=== PATIENT | male | born 1955 | race Caucasian/White ===

== ENCOUNTER → 2024-01-28 06:33 | Day surgery (SDC) | payer OTHER, SELFPAY | LOC: GI 06:33 | PROVIDERS: ATTENDING PHYSICIAN Internal Medicine Gastroenterology; FAMILY PHYSICIAN Family Medicine | DX: K20.0 Eosinophilic esophagitis (principal); K22.2 Esophageal obstruction; K22.89 Other specified disease of esophagus; K31.89 Other diseases of stomach and duodenum; R13.10 Dysphagia, unspecified | CPT/HCPCS: 43249; 43239; 88305; 88342 ==

== ENCOUNTER 2024-04-26 12:58 | Emergency (ER) | payer OTHER, SELFPAY ==
[2024-04-26 13:00] VITALS: BP 147/84
[2024-04-26 14:01] VITALS: BP 128/81
--- NOTE | 2024-04-26 14:05 | ED.GENMED ---
History of Present Illness
<Eryn Todd PA-C - Last Filed: 04/26/24 17:52>
General
Chief Complaint: Esophageal Problem
Source: patient
Exam Limitations: none
Time Seen by Provider: 04/26/24 13:59
History of Present Illness
History of Present Illness:
This is a 68-year-old male with a past medical history of eosinophilic esophagitis, gastritis, A-fib on Xarelto presenting emergency department today with concerns of a hot dog being stuck chest. Patient states that he was with his eating
lunch today when he took the last day of his hot dog and noticed that it got stuck in his chest. Patient states he is able to swallow about long-term but felt to get stuck in his chest. Patient is denies any shortness of breath, tongue or lip
swelling. Patient states that his symptoms started right away and he cannot tolerate sips of water without gagging or coughing up saliva. Patient states that this has happened to him in the past with a pill. Patient denies any abdominal pain,
nausea, vomiting, diarrhea, constipation. Patient follows with Dr. Burton for gastroenterology.
Past History
<RENNY Pressley Last Filed: 04/26/24 17:52>
Past History
ED Past Medical History: Arrthythmia (Atrial tachycardia, atrial fibrillation), Asthma and Other (PE after Achilles tendon repair february 2013 , atrial tachycardia, Vertigo)
ED Past Surgical History: Orthopedic (Right Achilles tendon tear repair 02/06/2013), Tonsilectomy and Other (Hernia repair X2)
Social History
Tobacco: Non-smoker
Alcohol: Occasional
Drug: None
Personal:
Living: with family
Employment: Employed
Family History
Family History: Other (He has a brother with atrial tachycardia)
Review of Systems
<RENNY Pressley Last Filed: 04/26/24 17:52>
Review of Systems
All Other Systems: ROS reviewed and negative except as documented in HPI and ROS
Phy Exam
<Eryn Todd PA-C - Last Filed: 04/26/24 17:52>
Physical Exam
Physical Exam:
General: Patient is well appearing and in no acute distress; non-toxic
Skin: Warm and dry, no rashes or lesions
Head: Normocephalic, atraumatic
Eyes: Sclera non-icteric. EOMs intact.
Peripheral Vascular: No lower extremity swelling or edema
Cardiac: Regular rate and rhythm, no murmurs
Pulm: Normal respiratory effort, no wheezes, rales, or rhonchi
Musculoskeletal: No tenderness to palpation of the external chest wall
Neuro: CN II-XII intact, no focal neurologic deficits.
Psychiatric: Appropriate mood and affect.
Course
<Eryn Todd PA-C - Last Filed: 04/26/24 17:52>
Orders/Labs/Results
Orders:
Orders
04/26/24 14:19
0.9% Sodium Chloride 1000 ml [Nss] 1,000 ml IV BOLUS
Glucagon [GlucaGen] 1 mg IV NOW STA
Ondansetron Injectable [Zofran] 4 mg IV NOW STA
04/26/24 15:22
Fentanyl Citrate/Pf [Sublimaze] 100 mcg .ROUTE .STK-MED ONE
Glycopyrrolate [Robinul] 0.2 mg .ROUTE .STK-MED ONE
Lidocaine 2% [Xylocaine 2% Mdv] 20 ml .ROUTE .STK-MED ONE
Ondansetron Injectable [Zofran] 4 mg .ROUTE .STK-MED ONE
Propofol [Diprivan] 20 ml .ROUTE .STK-MED
Rocuronium Davis [Rocuronium] 50 mg .ROUTE .STK-MED ONE
Vital Signs
Initial and Last Documented VS:
Initial Vital Signs
Temp Pulse Resp BP Pulse Ox
97.8 F 89 16 147/84 98
04/26/24 13:00 04/26/24 13:00 04/26/24 13:00 04/26/24 13:00 04/26/24 13:00
Last Documented Vital Signs
Temp Pulse Resp BP Pulse Ox
97.8 F 56 13 121/71 100
04/26/24 13:00 04/26/24 15:15 04/26/24 15:15 04/26/24 15:00 04/26/24 15:15
<Markus De La Garza, DO - Last Filed: 04/26/24 14:40>
Orders/Labs/Results
Orders:
Orders
04/26/24 14:19
0.9% Sodium Chloride 1000 ml [Nss] 1,000 ml IV BOLUS
Glucagon [GlucaGen] 1 mg IV NOW STA
Ondansetron Injectable [Zofran] 4 mg IV NOW STA
04/26/24 15:22
Fentanyl Citrate/Pf [Sublimaze] 100 mcg .ROUTE .STK-MED ONE
Glycopyrrolate [Robinul] 0.2 mg .ROUTE .STK-MED ONE
Lidocaine 2% [Xylocaine 2% Mdv] 20 ml .ROUTE .STK-MED ONE
Ondansetron Injectable [Zofran] 4 mg .ROUTE .STK-MED ONE
Propofol [Diprivan] 20 ml .ROUTE .STK-MED
Rocuronium Davis [Rocuronium] 50 mg .ROUTE .STK-MED ONE
Vital Signs
Initial and Last Documented VS:
Initial Vital Signs
Temp Pulse Resp BP Pulse Ox
97.8 F 89 16 147/84 98
04/26/24 13:00 04/26/24 13:00 04/26/24 13:00 04/26/24 13:00 04/26/24 13:00
Last Documented Vital Signs
Temp Pulse Resp BP Pulse Ox
97.8 F 56 13 121/71 100
04/26/24 13:00 04/26/24 15:15 04/26/24 15:15 04/26/24 15:00 04/26/24 15:15
<Eryn Todd PA-C - Last Filed: 04/26/24 17:52>
MDM/Problems Addressed
Differential Diagnosis Includes:
ddx include esophageal food impaction, esophagitis, gastritis, ACS,
MDM/Problems Addressed:
Globus sensation:
This is a 68-year-old male with a past medical history of eosinophilic esophagitis, gastritis, A-fib on Xarelto presenting emergency department today with concerns of a hot dog being stuck chest. Patient states that this has happened to him in the
past with a pill. Patient states that he ate his last bite of his hot dog and noticed it got stuck in his esophagus. I personally observed patient attempt to drink sips of water--he could not tolerate this and would gag and had a cup beside him for
salvia to collect. Patient was given IV fluids, glucagon, and Zofran. Because of his inability to tolerate saliva and water, GI was consulted consulted who agreed to see patient and scope him. As soon as the GI security and privacy consultant left the room, patient
states that his symptoms resolved and that he is able to get the hot dog down. On reevaluation, patient is asymptomatic and able to tolerate drinks of water without any globus sensation, without any gagging, without any reflux. Patient stable for
discharge to follow-up with his porcelain waxer.
Chronic conditions affecting care:
EOE, afib on eliquis, htn,
Acute Exacerbation and/or Progression of Chronic Illness:
EOE
<Eryn Todd PA-C - Last Filed: 04/26/24 17:52>
*Pulse Oximetry
Patient hypoxic: no
*Critical Care Note
Total Time (30-74mins, 75-104mins- exclusive of procedures): Not Applicable
Data Reviewed
Review of Other/Old Records Reveals: Records (reviewed previous ER physician documentation) and Operative Reports (Reviewed endoscopy report)
Source: patient and records
<Eryn Todd PA-C - Last Filed: 04/26/24 17:52>
Patient Management
Discussion with other providers: [facility] Laborer (gastroenterology)
Escalation/DeEscalation of care consider admission/obs:
Admit not indicated. Patient stable for discharge.
ED Attending Note
<Eryn Todd PA-C - Last Filed: 04/26/24 17:52>
-
Portions of this chart may have been created with voice recognition software.� Occasional wrong word or��sound alike� substitutions may have occurred due to the inherent limitations of voice recognition software.
<Markus De La Garza DO - Last Filed: 04/26/24 14:40>
ED Attending Note
Patient seen and examined by attending physician: Yes
I performed the substantive portion of visit, reviewed & personally made and approve the management plan that is documented in note by myself or RK.: Yes
I performed a history and physical exam of patient and discussed management with resident, I reviewed resident's note and agree with documented findings and plan of care.: Yes
ED Attending Note:
I evaluated the patient at bedside. GI has been contacted.
Discharge Plan
Departure
Patient Disposition: Home (Routine Discharge)
Date of Disposition: 04/26/24
Time of Disposition: 15:19
Patient with high blood pressure during this ER visit?: Yes
Condition: Fair
Discharge Problem:
Food impaction of esophagus
Prescriptions:
No Action
metoprolol succinate 50 MG tablet extended release 24 hr
75 mg PO DAILY
Xarelto 20 MG tablet
20 mg PO QPM Qty: 60 0RF
Referrals:
Braulio Griffin MD [Family Provider] -
Activity Restrictions/Additional Instructions:
Please return to the emergency department should you experience another episode of food impaction, chest pain, shortness of breath, dizziness, lightheadedness, weakness, confusion, or any other signs or symptoms concerning to you.
Please follow-up with your porcelain waxer.
Interventions
Interventions:
*Risk Screen - Suicide Last Done: 04/26/24 14:06
*General Assessment Last Done: 04/26/24 14:06
*Neglect/Abuse Screening Last Done: 04/26/24 14:06
ED- Fall Risk Assessment Last Done: 04/26/24 14:06
*ED COVID-19 Vaccine History Last Done: 04/26/24 14:06
*Nursing Disposition Last Done: 04/26/24 15:53
HM-Lrqunk-Hixaxaxyjm Assessment Last Done: 04/26/24 14:06
ED-EENT Assessment Last Done: 04/26/24 14:06
Discharge Date and Time
Discharge Date/Time: 04/26/24 15:54
Print Language: SALVADORE[place]
[2024-04-26 14:06] VITALS: BMI 27.2
[2024-04-26 14:48] VITALS: BP 143/82
[2024-04-26] MEDS: NSS 1000 IV (14:50)
[2024-04-26] MEDS: ZOFRAN 4 MG IV (14:51)
[2024-04-26] MEDS: GlucaGen 1 MG IV (14:51)
[2024-04-26 15:00] VITALS: BP 121/71
== END 2024-04-26 15:54 | disposition home or self-care (01) ==
LOC: EMR 12:58
PROVIDERS: EMERGENCY PHYSICIAN Emergency Medicine; FAMILY PHYSICIAN Family Medicine
DX: T18.128A Food in esophagus causing other injury, initial encounter (principal); W44.F3XA Food entering into or through a natural orifice, initial encounter; I10 Essential (primary) hypertension; I48.91 Unspecified atrial fibrillation
CPT/HCPCS: 99284; 96374; 96375; 96361; J1610